=== PATIENT | female | born 1960 | race Caucasian/White ===

== ENCOUNTER 2016-06-03 20:45 | Emergency (ER) | payer OTHER ==
[~2016-06-03] VITALS: Ht 160 cm; Wt 48.0 kg
[2016-06-03] MEDS ORDERED: HYDROCODONE/ACETAMINOPHEN 5/325MG TABLET PO ONE (23:45)
[2016-06-03] MEDS ORDERED: CARISOPRODOL 350 MG TABLET PO ONE (23:45)
[2016-06-04 00:17] VITALS: BP 126/75
== END 2016-06-04 00:31 | disposition home or self-care (01) ==
LOC: ER 23:31 → EDUNIT# 23:31 → ER 06-04 00:31
DX: G89.29 Other chronic pain (principal); M54.5 Low back pain; G40.909 Epilepsy, unspecified, not intractable, without status epilepticus; F17.210 Nicotine dependence, cigarettes, uncomplicated; Z88.8 Allergy status to other drugs, medicaments and biological substances
CPT/HCPCS: 99283

== ENCOUNTER 2016-08-27 18:15 | Emergency (ER) | payer OTHER ==
[~2016-08-27] VITALS: Ht 162.6 cm; Wt 65.0 kg
[2016-08-27 21:51] LABS: BASOPHILS % 0.4 % (0.0-2.0); EOSINOPHILS % 0.7 % (0.0-5.0); HEMATOCRIT. 34.3 % (36.0-48.0); HEMOGLOBIN. 11.2 g/dL (12.0-16.0); LYMPHOCYTES % 56.2 % (20.0-50.0); MEAN CORPUSCULAR HEMOGLOBIN 28.4 pg (28.0-32.0); MEAN CORPUSCULAR VOLUME 86.8 fL (81.0-99.0); MEAN PLATELET VOLUME 7.5 fl (7.4-10.4); NEUTROPHILS % 37.7 % (40.0-76.0); PLATELET 161 x1000/uL (130-400); RED BLOOD CELL COUNT 3.96 mill/uL (4.2-5.4); RED CELL DISTRIBUTION WIDTH 21.2 % (11.6-14.6)
[2016-08-27 21:56] LABS: CHLORIDE 106 mEq/L (98-107)
[2016-08-27 21:58] LABS: INR 0.9; PROTHROMBIN TIME 9.6 sec
[2016-08-27 22:02] LABS: AMMONIA 30 uMol/L (<32); CARBON DIOXIDE 21 mEq/L (21-32)
[2016-08-27 22:04] LABS: PHENYTOIN 0.5 ug/mL (10-20)
[2016-08-27 22:09] LABS: CARBAMAZEPINE < 0.5 ug/mL (4-12); PHENOBARBITAL < 2.1 ug/mL (15.0-40.0); VALPROIC ACID < 3.0 ug/mL (50-100)
[2016-08-27 22:47] LABS: CLARITY URINE TURBID (CLEAR); COLOR URINE YELLOW (YELLOW); GLUCOSE URINE NEGATIVE (NEGATIVE); KETONES URINE NEGATIVE (NEGATIVE); LEUKOCYTE ESTERASE URINE 3+ (NEGATIVE); NITRITE URINE POSITIVE (NEGATIVE); OCCULT BLOOD URINE 2+ (NEGATIVE); PH URINE 6.5 (4.5-8.0); PROTEIN URINE 1+ (NEGATIVE); SPECIFIC GRAVITY URINE 1.005 (1.005-1.030); UROBILINOGEN URINE 0.2 E.U./dL (0.2-1.0)
[2016-08-28] MEDS ORDERED: KETOROLAC 30MG/ML VIAL IV ONE
[2016-08-28 01:30] VITALS: BP 107/62
== END 2016-08-28 01:30 | disposition home or self-care (01) ==
LOC: ER 18:25
DX: G40.909 Epilepsy, unspecified, not intractable, without status epilepticus (principal); R51 Headache; M54.2 Cervicalgia; N39.0 Urinary tract infection, site not specified; I10 Essential (primary) hypertension; F10.21 Alcohol dependence, in remission; Z98.890 Other specified postprocedural states; Z99.3 Dependence on wheelchair; Z20.6 Contact with and (suspected) exposure to human immunodeficiency virus [HIV]; W05.0XXA Fall from non-moving wheelchair, initial encounter; Y93.89 Activity, other specified; Y92.018 Other place in single-family (private) house as the place of occurrence of the external cause
CPT/HCPCS: 36415; 51701; 70450; 71010; 72125; 80053; 80156; 80165; 80184; 80185; 81001; 82140; 82962; 83605; 85025; 85610; 96374; 99285; J1885; Z7610; A4315

== ENCOUNTER 2017-03-06 14:11 | Emergency (ER) | payer OTHER ==
[~2017-03-06] VITALS: Ht 157.5 cm; Wt 60.0 kg
[2017-03-06] MEDS ORDERED: SODIUM CHLORIDE 0.9% 1,000 ML IV ONE (23:07)
[2017-03-06] MEDS ORDERED: KETOROLAC 30MG/ML VIAL IV ONE (23:15)
[2017-03-06 23:37] LABS: CLARITY URINE CLEAR (CLEAR); COLOR URINE YELLOW (YELLOW); KETONES URINE NEGATIVE (NEGATIVE); LEUKOCYTE ESTERASE URINE NEGATIVE (NEGATIVE); NITRITE URINE NEGATIVE (NEGATIVE); OCCULT BLOOD URINE NEGATIVE (NEGATIVE); PH URINE 5.5 (4.5-8.0); PROTEIN URINE NEGATIVE (NEGATIVE); SPECIFIC GRAVITY URINE 1.014 (1.005-1.030); UROBILINOGEN URINE 0.2 E.U./dL (0.2-1.0)
[2017-03-06 23:56] LABS: BASOPHILS % 0.5 % (0.0-2.0); HEMATOCRIT. 41.1 % (36.0-48.0); HEMOGLOBIN. 13.7 g/dL (12.0-16.0); LYMPHOCYTES % 50.6 % (20.0-50.0); MEAN CORPUSCULAR HEMOGLOBIN 30.5 pg (28.0-32.0); MEAN CORPUSCULAR VOLUME 91.5 fL (81.0-99.0); MEAN PLATELET VOLUME 7.1 fl (7.4-10.4); MONOCYTES % 6.9 % (2.0-8.0); PLATELET 233 x1000/uL (130-400); RED BLOOD CELL COUNT 4.49 mill/uL (4.2-5.4)
[2017-03-06 23:58] LABS: *AMPHETAMINES SCREEN URINE NEGATIVE (NEGATIVE); *BARBITURATES SCREEN URINE NEGATIVE (NEGATIVE); *BENZODIAZEPINES SCREEN URINE PRESUMTIVE POSITIVE (NEGATIVE); *COCAINE SCREEN URINE NEGATIVE (NEGATIVE); CANNABINOID URINE SCREEN PRESUMTIVE POSITIVE (NEGATIVE); METHADONE URINE SCREEN NEGATIVE (NEGATIVE); OPIATES URINE SCREEN NEGATIVE (NEGATIVE); PHENCYCLIDINE URINE SCREEN NEGATIVE (NEGATIVE)
[2017-03-07 00:14] LABS: CARBON DIOXIDE 23 mEq/L (21-32); CHLORIDE 106 mEq/L (98-107); ETHANOL BLOOD 71 mg/dL; TROPONIN I 0.03 ng/mL (0.00-0.04)
[2017-03-07 02:45] VITALS: BP 141/76
== END 2017-03-07 02:59 | disposition home or self-care (01) ==
LOC: ER 14:27
DX: K52.9 Noninfective gastroenteritis and colitis, unspecified (principal); F12.90 Cannabis use, unspecified, uncomplicated; M94.0 Chondrocostal junction syndrome [Tietze]; F17.200 Nicotine dependence, unspecified, uncomplicated
CPT/HCPCS: 36415; 71010; 80053; 80305; 81003; 81025; 83690; 84484; 85025; 93005; 96361; 96374; 99285; C1893; G0482; J1885; J7030; Z7610

== ENCOUNTER 2017-03-07 04:58 | Emergency (ER) | payer OTHER ==
[~2017-03-07] VITALS: Ht 165.1 cm; Wt 61.0 kg
[2017-03-07 05:09] VITALS: BP 150/70
== END 2017-03-07 11:02 | disposition left against medical advice (07) ==
LOC: ER 05:52
DX: R07.9 Chest pain, unspecified (principal); Z53.21 Procedure and treatment not carried out due to patient leaving prior to being seen by health care provider
CPT/HCPCS: 93005

== ENCOUNTER 2017-05-29 11:29 | Emergency (ER) | payer OTHER ==
[~2017-05-29] VITALS: Ht 165.1 cm; Wt 51.0 kg
[2017-05-29 13:14] VITALS: BP 112/72
[2017-06-05] MEDS ORDERED: ASPI-1159 PO (09:12)
[2017-06-05] MEDS ORDERED: DILT30TA3 PO (09:12)
[2017-06-05] MEDS ORDERED: RISP0.5T19 PO (09:12)
[2017-06-05] MEDS ORDERED: FOLI-43 PO (09:12)
[2017-06-05] MEDS ORDERED: DOCU-150 PO (09:12)
[2017-06-05] MEDS ORDERED: LEVE500T19 PO (09:12)
[2017-06-05] MEDS ORDERED: CARV3.1242 PO (09:12)
[2017-06-05] MEDS ORDERED: DIPH25CA46 PO (09:12)
== END 2017-05-29 13:15 | disposition left against medical advice (07) ==
LOC: ER 12:46
DX: M54.5 Low back pain (principal); Z88.8 Allergy status to other drugs, medicaments and biological substances; Z98.890 Other specified postprocedural states; Z59.0 Homelessness
CPT/HCPCS: 99283

== ENCOUNTER 2017-06-06 21:09 | Emergency (ER) | payer OTHER ==
[~2017-06-06] VITALS: Ht 162.6 cm; Wt 68.0 kg
[~2017-06-06 21:09] MED LIST: ASPI-1159 PO; CARV3.1242 PO; DILT30TA3 PO; DIPH25CA46 PO; DOCU-150 PO; FOLI-43 PO; LEVE500T19 PO; RISP0.5T19 PO
[2017-06-06] MEDS ORDERED: LEVETIRACETAM 500MG TABLET PO ONE (22:30)
[2017-06-06 23:53] LABS: BASOPHILS % 0.7 % (0.0-2.0); EOSINOPHILS % 3.3 % (0.0-5.0); HEMATOCRIT. 37.7 % (36.0-48.0); HEMOGLOBIN. 12.9 g/dL (12.0-16.0); LYMPHOCYTES % 33.8 % (20.0-50.0); MEAN CORPUSCULAR HEMOGLOBIN 32.9 pg (28.0-32.0); MEAN CORPUSCULAR VOLUME 95.9 fL (81.0-99.0); MEAN PLATELET VOLUME 7.9 fl (7.4-10.4); MONOCYTES % 8.3 % (2.0-8.0); NEUTROPHILS % 53.9 % (40.0-76.0); PLATELET 220 x1000/uL (130-400); RED BLOOD CELL COUNT 3.93 mill/uL (4.2-5.4); RED CELL DISTRIBUTION WIDTH 13.2 % (11.6-14.6)
[2017-06-06 23:59] LABS: PROTHROMBIN TIME 10.7 sec (9.4-11.6)
[2017-06-07 00:03] LABS: CHLORIDE 97 mEq/L (98-107); ETHANOL BLOOD 17 mg/dL
[2017-06-07 00:37] LABS: *COCAINE SCREEN URINE NEGATIVE (NEGATIVE); CANNABINOID URINE SCREEN NEGATIVE (NEGATIVE); METHADONE URINE SCREEN NEGATIVE (NEGATIVE); PHENCYCLIDINE URINE SCREEN NEGATIVE (NEGATIVE)
[2017-06-07 00:42] LABS: *AMPHETAMINES SCREEN URINE NEGATIVE (NEGATIVE); *BARBITURATES SCREEN URINE NEGATIVE (NEGATIVE); *BENZODIAZEPINES SCREEN URINE NEGATIVE (NEGATIVE); OPIATES URINE SCREEN PRESUMTIVE POSITIVE (NEGATIVE)
[2017-06-07 06:35] VITALS: BP 144/59
== END 2017-06-07 06:36 | disposition home or self-care (01) ==
LOC: ER 21:25
DX: R07.2 Precordial pain (principal); F10.20 Alcohol dependence, uncomplicated; R56.9 Unspecified convulsions; Z79.82 Long term (current) use of aspirin
CPT/HCPCS: 36415; 70450; 71045; 80053; 80305; 84484; 85025; 85610; 93005; 99285; G0482; Z7610

== ENCOUNTER 2017-06-27 12:01 | Emergency (ER) | payer OTHER ==
[~2017-06-27] VITALS: Ht 160 cm; Wt 55.0 kg
[2017-06-27] MEDS ORDERED: SODIUM CHLORIDE 0.9% 1,000 ML IV ONE (13:00)
[2017-06-27 14:35] LABS: BASOPHILS % 0.6 % (0.0-2.0); EOSINOPHILS % 4.5 % (0.0-5.0); HEMATOCRIT. 36.6 % (36.0-48.0); HEMOGLOBIN. 12.7 g/dL (12.0-16.0); LYMPHOCYTES % 39.5 % (20.0-50.0); MEAN CORPUSCULAR HEMOGLOBIN 33.5 pg (28.0-32.0); MEAN CORPUSCULAR VOLUME 96.4 fL (81.0-99.0); MEAN PLATELET VOLUME 7.3 fl (7.4-10.4); MONOCYTES % 7.3 % (2.0-8.0); NEUTROPHILS % 48.1 % (40.0-76.0); PLATELET 157 x1000/uL (130-400); RED CELL DISTRIBUTION WIDTH 15.2 % (11.6-14.6)
[2017-06-27 14:39] LABS: CHLORIDE 104 mEq/L (98-107)
[2017-06-27 14:40] LABS: PROTHROMBIN TIME 10.4 sec (9.4-11.6)
[2017-06-27 14:43] LABS: ETHANOL BLOOD 218 mg/dL
[2017-06-27 14:55] VITALS: BP 110/70
[2017-06-27 15:27] LABS: CLARITY URINE CLEAR (CLEAR); COLOR URINE YELLOW (YELLOW); KETONES URINE NEGATIVE (NEGATIVE); LEUKOCYTE ESTERASE URINE NEGATIVE (NEGATIVE); NITRITE URINE NEGATIVE (NEGATIVE); OCCULT BLOOD URINE NEGATIVE (NEGATIVE); PROTEIN URINE NEGATIVE (NEGATIVE); SPECIFIC GRAVITY URINE 1.007 (1.005-1.030); UROBILINOGEN URINE 0.2 E.U./dL (0.2-1.0)
[2017-06-27] MEDS ORDERED: SODIUM CHLORIDE 0.9% 1000ML BAG (SEPSIS BOLUS) IV NR (15:30)
[2017-06-27] MEDS ORDERED: DIPHENHYDRAMINE 50MG/ML VIAL IV NR (16:06)
== END 2017-06-27 17:53 | disposition home or self-care (01) ==
LOC: ER 12:30
DX: K62.5 Hemorrhage of anus and rectum (principal); E87.6 Hypokalemia; E86.0 Dehydration; F10.229 Alcohol dependence with intoxication, unspecified; F17.200 Nicotine dependence, unspecified, uncomplicated; F12.10 Cannabis abuse, uncomplicated; I48.91 Unspecified atrial fibrillation; R56.9 Unspecified convulsions; Z79.82 Long term (current) use of aspirin; Z86.010 Personal history of colon polyps; Z90.49 Acquired absence of other specified parts of digestive tract; Z87.440 Personal history of urinary (tract) infections; Z98.890 Other specified postprocedural states
CPT/HCPCS: 36415; 71045; 74176; 80053; 81003; 83605; 83690; 84484; 85025; 85610; 86850; 86900; 86901; 93005; 96361; 96374; 96375; 99285; G0482; J7030; Z7610

== ENCOUNTER 2017-09-05 17:03 | Emergency (ER) | payer OTHER ==
[~2017-09-05] VITALS: Ht 160 cm; Wt 60.0 kg
[~2017-09-05 17:03] MED LIST changes: +CARI350T PO; +HYDR-4001 PO
[2017-09-05] MEDS ORDERED: SODIUM CHLORIDE 0.9% 1,000 ML IV ONE (23:23)
[2017-09-05] MEDS ORDERED: IBUPROFEN 600MG TABLET PO ONE (23:45)
[2017-09-06 00:21] LABS: BASOPHILS % 1.1 % (0.0-2.0); HEMATOCRIT. 38.9 % (36.0-48.0); HEMOGLOBIN. 13.1 g/dL (12.0-16.0); MEAN CORPUSCULAR HEMOGLOBIN 32.6 pg (28.0-32.0); MEAN CORPUSCULAR VOLUME 96.8 fL (81.0-99.0); MEAN PLATELET VOLUME 8.1 fl (7.4-10.4); MONOCYTES % 8.6 % (2.0-8.0); NEUTROPHILS % 51.3 % (40.0-76.0); PLATELET 349 x1000/uL (130-400); RED BLOOD CELL COUNT 4.02 mill/uL (4.2-5.4); RED CELL DISTRIBUTION WIDTH 14.5 % (11.6-14.6)
[2017-09-06 00:26] LABS: CHLORIDE 104 mEq/L (98-107)
[2017-09-06 00:31] LABS: ETHANOL BLOOD 42 mg/dL
[2017-09-06 01:30] VITALS: BP 144/88
== END 2017-09-06 06:35 | disposition home or self-care (01) ==
LOC: ER 17:30
DX: M79.662 Pain in left lower leg (principal); M79.661 Pain in right lower leg; I10 Essential (primary) hypertension; R56.9 Unspecified convulsions; F10.10 Alcohol abuse, uncomplicated; Y90.2 Blood alcohol level of 40-59 mg/100 ml; F17.200 Nicotine dependence, unspecified, uncomplicated; Z79.82 Long term (current) use of aspirin
CPT/HCPCS: 36415; 80048; 80307; 80329; 85025; 93970; 99285; G0482; J7030

== ENCOUNTER 2017-09-12 14:54 | Emergency (ER) | payer OTHER ==
[~2017-09-12] VITALS: Ht 162.6 cm; Wt 53.0 kg
[~2017-09-12 14:54] MED LIST changes: -CARI350T PO; +S350 PO
[2017-09-12] MEDS ORDERED: LEVETIRACETAM 500MG PREMIX 100 ML IV ONE (16:15)
[2017-09-12] MEDS ORDERED: SODIUM CHLORIDE 0.9% 1,000 ML IV ONE (16:15)
[2017-09-12 16:19] LABS: EOSINOPHILS % 3.1 % (0.0-5.0); HEMATOCRIT. 38.5 % (36.0-48.0); HEMOGLOBIN. 13.3 g/dL (12.0-16.0); LYMPHOCYTES % 34.1 % (20.0-50.0); MEAN CORPUSCULAR HEMOGLOBIN 33.1 pg (28.0-32.0); MEAN CORPUSCULAR VOLUME 96.2 fL (81.0-99.0); MEAN PLATELET VOLUME 7.3 fl (7.4-10.4); MONOCYTES % 6.6 % (2.0-8.0); NEUTROPHILS % 55.2 % (40.0-76.0); PLATELET 313 x1000/uL (130-400); RED BLOOD CELL COUNT 4.01 mill/uL (4.2-5.4); RED CELL DISTRIBUTION WIDTH 14.6 % (11.6-14.6)
[2017-09-12 16:25] LABS: CHLORIDE 103 mEq/L (98-107)
[2017-09-12 17:00] LABS: ETHANOL BLOOD 307 mg/dL
[2017-09-12 18:04] VITALS: BP 124/69
[2017-09-12] MEDS ORDERED: ACETAMINOPHEN 325MG TABLET PO ONE (20:30)
== END 2017-09-12 21:25 | disposition home or self-care (01) ==
LOC: ER 14:54
DX: F10.20 Alcohol dependence, uncomplicated (principal); F17.200 Nicotine dependence, unspecified, uncomplicated; R56.9 Unspecified convulsions; Y90.8 Blood alcohol level of 240 mg/100 ml or more; Z79.899 Other long term (current) drug therapy
CPT/HCPCS: 36415; 80053; 85025; 96365; 99284; G0482; J1953; J7030; Z7610

== ENCOUNTER 2017-09-12 22:32 | Emergency (ER) | payer OTHER ==
[~2017-09-12] VITALS: Ht 160 cm; Wt 60.0 kg
[2017-09-12 22:43] VITALS: BP 117/72
== END 2017-09-13 06:25 | disposition home or self-care (01) ==
LOC: ER 22:33
DX: R56.9 Unspecified convulsions (principal); F10.10 Alcohol abuse, uncomplicated; F12.10 Cannabis abuse, uncomplicated; F17.200 Nicotine dependence, unspecified, uncomplicated; Z91.14 Patient's other noncompliance with medication regimen; Z90.49 Acquired absence of other specified parts of digestive tract; Z98.890 Other specified postprocedural states; Z86.73 Personal history of transient ischemic attack (TIA), and cerebral infarction without residual deficits; Z79.899 Other long term (current) drug therapy; Y90.9 Presence of alcohol in blood, level not specified
CPT/HCPCS: 36415; 82947; 82962; 99283

== ENCOUNTER 2017-09-19 12:57 | Emergency (ER) | payer OTHER ==
[~2017-09-19] VITALS: Ht 165.1 cm; Wt 65.0 kg
[~2017-09-19 12:57] MED LIST changes: +CARI350T PO; -S350 PO
[2017-09-19 15:20] LABS: BASOPHILS % 0.5 % (0.0-2.0); EOSINOPHILS % 1.8 % (0.0-5.0); HEMATOCRIT. 38.7 % (36.0-48.0); LYMPHOCYTES % 31.3 % (20.0-50.0); MEAN CORPUSCULAR HEMOGLOBIN 32.4 pg (28.0-32.0); MEAN CORPUSCULAR VOLUME 96.8 fL (81.0-99.0); MEAN PLATELET VOLUME 7.6 fl (7.4-10.4); MONOCYTES % 4.8 % (2.0-8.0); NEUTROPHILS % 61.6 % (40.0-76.0); PLATELET 171 x1000/uL (130-400); RED CELL DISTRIBUTION WIDTH 14.8 % (11.6-14.6)
[2017-09-19 15:23] LABS: CHLORIDE 104 mEq/L (98-107)
[2017-09-19 15:28] LABS: HCG SCREEN NEGATIVE; PROTHROMBIN TIME 10.4 sec (9.4-11.6)
[2017-09-19 15:44] LABS: ETHANOL BLOOD 321 mg/dL
[2017-09-19 18:07] LABS: CLARITY URINE CLOUDY (CLEAR); COLOR URINE YELLOW (YELLOW); KETONES URINE NEGATIVE (NEGATIVE); LEUKOCYTE ESTERASE URINE 3+ (NEGATIVE); NITRITE URINE NEGATIVE (NEGATIVE); OCCULT BLOOD URINE TRACE (NEGATIVE); PROTEIN URINE NEGATIVE (NEGATIVE); SPECIFIC GRAVITY URINE 1.005 (1.005-1.030); UROBILINOGEN URINE 0.2 E.U./dL (0.2-1.0)
[2017-09-19 18:16] LABS: *COCAINE SCREEN URINE NEGATIVE (NEGATIVE)
[2017-09-19 18:17] LABS: *AMPHETAMINES SCREEN URINE NEGATIVE (NEGATIVE); *BARBITURATES SCREEN URINE NEGATIVE (NEGATIVE); *BENZODIAZEPINES SCREEN URINE NEGATIVE (NEGATIVE); CANNABINOID URINE SCREEN PRESUMTIVE POSITIVE (NEGATIVE); METHADONE URINE SCREEN NEGATIVE (NEGATIVE); OPIATES URINE SCREEN NEGATIVE (NEGATIVE)
[2017-09-19 18:18] LABS: PHENCYCLIDINE URINE SCREEN NEGATIVE (NEGATIVE)
[2017-09-19] MEDS ORDERED: ACETAMINOPHEN 325MG TABLET PO ONE (18:30)
[2017-09-19] MEDS ORDERED: CEFTRIAXONE 1 G PREMIX 50 ML IV ONE (19:45)
[2017-09-19] MEDS ORDERED: CEFTRIAXONE SODIUM 1 G/VIAL IM ONE (20:45)
[2017-09-19] MEDS ORDERED: LIDOCAINE HCL 1% 20ML VIAL (Pyxis) INJ INFIL ONE (20:45)
[2017-09-19 23:03] VITALS: BP 112/69
== END 2017-09-20 00:20 | disposition home or self-care (01) ==
LOC: ER 13:36
DX: F10.129 Alcohol abuse with intoxication, unspecified (principal); Y90.8 Blood alcohol level of 240 mg/100 ml or more; R56.9 Unspecified convulsions; N39.0 Urinary tract infection, site not specified; F17.200 Nicotine dependence, unspecified, uncomplicated; W05.0XXA Fall from non-moving wheelchair, initial encounter; Y93.9 Activity, unspecified; Y92.9 Unspecified place or not applicable
CPT/HCPCS: 36415; 70450; 71045; 72125; 80053; 80305; 81003; 84484; 84703; 85025; 85610; 87077; 87086; 87186; 93005; 96372; 99285; G0482; J0696; J3490; Z7610

== ENCOUNTER → 2017-09-20 | Emergency (ER) | payer OTHER ==
[~2017-09-20] VITALS: Ht 170.2 cm; Wt 55.0 kg
[~2017-09-20] MED LIST changes: +LEVETIRACETAM 500MG TABLET PO ONE
[2017-09-20 23:00] VITALS: BP 104/62
== END | disposition home or self-care (01) ==
LOC: ER 15:44
DX: F10.229 Alcohol dependence with intoxication, unspecified (principal); G40.909 Epilepsy, unspecified, not intractable, without status epilepticus; G89.29 Other chronic pain; M54.89 Other dorsalgia; F12.10 Cannabis abuse, uncomplicated; F17.200 Nicotine dependence, unspecified, uncomplicated; Y90.8 Blood alcohol level of 240 mg/100 ml or more; Z91.81 History of falling; Z91.14 Patient's other noncompliance with medication regimen; Z98.890 Other specified postprocedural states; Z99.3 Dependence on wheelchair; Z89.431 Acquired absence of right foot
CPT/HCPCS: 36415; 99283; G0482

== ENCOUNTER 2017-09-30 11:19 | Emergency (ER) | payer OTHER ==
[~2017-09-30] VITALS: Ht 152.4 cm; Wt 50.0 kg
[~2017-09-30 11:19] MED LIST changes: -CARI350T PO; -LEVETIRACETAM 500MG TABLET PO ONE; +S350 PO
[2017-09-30] MEDS ORDERED: ACETAMINOPHEN 325MG TABLET PO ONE ×2 (13:00→19:00)
[2017-09-30] MEDS ORDERED: SODIUM CHLORIDE 0.9% 1,000 ML IV ONE (15:21)
[2017-09-30 21:46] VITALS: BP 136/66
== END 2017-09-30 22:08 | disposition home or self-care (01) ==
LOC: ER 11:19
DX: M54.5 Low back pain (principal); F10.20 Alcohol dependence, uncomplicated; I10 Essential (primary) hypertension; R93.0 Abnormal findings on diagnostic imaging of skull and head, not elsewhere classified; R55 Syncope and collapse; Z79.82 Long term (current) use of aspirin; Y90.8 Blood alcohol level of 240 mg/100 ml or more; W07.XXXA Fall from chair, initial encounter; Y93.89 Activity, other specified; Y92.89 Other specified places as the place of occurrence of the external cause; Y99.8 Other external cause status
CPT/HCPCS: 36415; 70450; 72100; 72125; 96360; 96361; 99285; G0482; J7030; Z7610; C1893

== ENCOUNTER 2017-09-30 21:26 | Observation (INO) | payer OTHER ==
[~2017-09-30] VITALS: Ht 160 cm; Wt 49.9 kg
[2017-10-01 08:37] LABS: BASOPHILS % 0.8 % (0.0-2.0); EOSINOPHILS % 0.3 % (0.0-5.0); HEMATOCRIT. 36.6 % (36.0-48.0); HEMOGLOBIN. 12.5 g/dL (12.0-16.0); MEAN CORPUSCULAR HEMOGLOBIN 32.5 pg (28.0-32.0); MEAN CORPUSCULAR VOLUME 95.5 fL (81.0-99.0); MEAN PLATELET VOLUME 7.3 fl (7.4-10.4); MONOCYTES % 8.7 % (2.0-8.0); NEUTROPHILS % 74.2 % (40.0-76.0); PLATELET 128 x1000/uL (130-400); RED BLOOD CELL COUNT 3.83 mill/uL (4.2-5.4)
[2017-10-01 08:43] LABS: CHLORIDE 102 mEq/L (98-107)
[2017-10-01 08:47] LABS: ETHANOL BLOOD < 10 mg/dL
[2017-10-01 08:49] LABS: AMMONIA 22 uMol/L (<32)
[2017-10-01] MEDS ORDERED: LEVETIRACETAM 1000MG/100ML 100 ML IV ONE (09:15)
[2017-10-01] MEDS ORDERED: LIDOCAINE HCL/EPINEPHRINE 1%-EPI 1:100,000 30 ML VIAL INFIL ONE (10:30)
[2017-10-01 10:42] LABS: CLARITY URINE CLOUDY (CLEAR); COLOR URINE YELLOW (YELLOW); KETONES URINE TRACE (NEGATIVE); LEUKOCYTE ESTERASE URINE 3+ (NEGATIVE); NITRITE URINE NEGATIVE (NEGATIVE); OCCULT BLOOD URINE 1+ (NEGATIVE); PH URINE 7.5 (4.5-8.0); PROTEIN URINE TRACE (NEGATIVE); SPECIFIC GRAVITY URINE 1.008 (1.005-1.030); UROBILINOGEN URINE 0.2 E.U./dL (0.2-1.0)
[2017-10-01] MEDS ORDERED: CEFTRIAXONE 1 G PREMIX 50 ML IV NR (11:15)
[2017-10-01 11:31] LABS: *AMPHETAMINES SCREEN URINE NEGATIVE (NEGATIVE); *BARBITURATES SCREEN URINE NEGATIVE (NEGATIVE); *BENZODIAZEPINES SCREEN URINE NEGATIVE (NEGATIVE); *COCAINE SCREEN URINE NEGATIVE (NEGATIVE); METHADONE URINE SCREEN NEGATIVE (NEGATIVE); OPIATES URINE SCREEN NEGATIVE (NEGATIVE)
[2017-10-01 11:32] LABS: CANNABINOID URINE SCREEN PRESUMTIVE POSITIVE (NEGATIVE); PHENCYCLIDINE URINE SCREEN NEGATIVE (NEGATIVE)
[2017-10-01] MEDS ORDERED: LIDOCAINE HCL/EPINEPHRINE 1%-EPI 1:100,000 20 ML VIAL INFIL ONE (12:30)
[2017-10-01] MEDS ORDERED: BACITRACIN ZINC OINT UDPKT TOP ONE (13:45)
[2017-10-01 14:58] VITALS: BP 143/73
[2017-10-01 16:00] VITALS: BP 145/80
[2017-10-01] MEDS ORDERED: LORAZEPAM 2MG/ML CPJ IV PRN ×2 (16:30→17:45)
[2017-10-01] MEDS ORDERED: DIPHENHYDRAMINE 50MG/ML VIAL IM PRN (16:30)
[2017-10-01] MEDS: DOCUSATE SODIUM 100MG CAPSULE PO SCH (17:00)
[2017-10-01] MEDS: CARISOPRODOL 350 MG TABLET PO PRN ×2 (17:03→20:25)
[2017-10-01] MEDS: HYDROCODONE/ACETAMINOPHEN 5/325MG TABLET PO PRN (17:07)
[2017-10-01] MEDS ORDERED: CLONIDINE 0.1MG TABLET PO PRN (17:45)
[2017-10-01] MEDS ORDERED: ONDANSETRON HCL 4MG/2ML VIAL IV PRN (17:45)
[2017-10-01] MEDS ORDERED: ACETAMINOPHEN 325MG TABLET PO PRN (17:45)
[2017-10-01] MEDS: SODIUM CHLORIDE 0.9% 1,000 ML IV SCH (18:00)
[2017-10-01 20:00] VITALS: BP 104/66
[2017-10-01] MEDS ORDERED: LEVOFLOXACIN 500MG PREMIX 100 ML IV SCH (20:00)
[2017-10-01] MEDS: CARVEDILOL 3.125 MG TABLET PO SCH (20:28)
[2017-10-01] MEDS: RISPERIDONE 0.5MG TABLET PO SCH (20:29)
[2017-10-01] MEDS: ENOXAPARIN 40MG/0.4ML SYR SUBCUT SCH (20:29)
[2017-10-01] MEDS ORDERED: LEVETIRACETAM 250MG TABLET PO SCH ×2 (21:00)
[2017-10-01] MEDS ORDERED: ENOXAPARIN 40MG/0.4ML SYR SUBCUT SCH (21:00)
[2017-10-01 22:00] VITALS: BP 104/66
[2017-10-02] VITALS (7 sets, daily range): BP systolic 94–148; BP diastolic 54–73
[2017-10-02] MEDS: DILTIAZEM HCL 30MG TABLET PO SCH ×3 (00:45→13:17)
[2017-10-02] MEDS: HYDROCODONE/ACETAMINOPHEN 5/325MG TABLET PO PRN ×3 (00:47→15:05)
[2017-10-02] MEDS: LEVETIRACETAM 500MG TABLET PO SCH ×2 (08:41→21:01)
[2017-10-02] MEDS: DOCUSATE SODIUM 100MG CAPSULE PO SCH ×2 (08:41→18:03)
[2017-10-02] MEDS: CARVEDILOL 3.125 MG TABLET PO SCH ×2 (08:44→21:01)
[2017-10-02] MEDS ORDERED: ASPIRIN 81MG TABLET PO SCH (09:00)
[2017-10-02] MEDS ORDERED: FOLIC ACID 1MG TABLET PO SCH (09:00)
[2017-10-02] MEDS: SODIUM CHLORIDE 0.9% 1,000 ML IV SCH ×2 (09:00→14:00)
[2017-10-02] MEDS: POTASSIUM CHLORIDE 20MEQ/PACKET PO SCH (09:57)
[2017-10-02] MEDS: RISPERIDONE 0.5MG TABLET PO SCH (21:01)
[2017-10-02] MEDS: ENOXAPARIN 40MG/0.4ML SYR SUBCUT SCH (21:02)
== END 2017-10-02 21:05 | disposition home or self-care (01) ==
LOC: ER 21:26 → INTOOBSV 10-01 11:44 → 7WST 10-01 11:44 → EDBEDREQTM 10-01 11:49 → EDBEDREQ 10-01 11:49 → ENRESERV 10-01 11:53
PROVIDERS: ADMIT Internal Medicine Nephrology; ATTEND Internal Medicine Nephrology
DX: G40.909 Epilepsy, unspecified, not intractable, without status epilepticus (principal); N39.0 Urinary tract infection, site not specified; E87.6 Hypokalemia; I48.91 Unspecified atrial fibrillation; I11.0 Hypertensive heart disease with heart failure; I50.9 Heart failure, unspecified; Z91.14 Patient's other noncompliance with medication regimen
CPT/HCPCS: 36415; 51702; 70450; 71045; 72125; 80053; 80305; 81003; 82140; 85025; 87077; 87086; 87186; 93005; 96361; 96365; 96366; 96367; 96372; 99285; G0378; G0482; J0696; J1650; J1953; J1956; J3490; J7030; J7040; L0172

== ENCOUNTER 2017-10-17 14:04 | Emergency (ER) | payer OTHER ==
[~2017-10-17] VITALS: Ht 160 cm; Wt 46.0 kg
[2017-10-17] MEDS ORDERED: SODIUM CHLORIDE 0.9% 500 ML IV ONE (15:41)
[2017-10-17 17:54] LABS: BASOPHILS % 0.6 % (0.0-2.0); EOSINOPHILS % 0.6 % (0.0-5.0); HEMATOCRIT. 38.6 % (36.0-48.0); HEMOGLOBIN. 12.8 g/dL (12.0-16.0); LYMPHOCYTES % 37.8 % (20.0-50.0); MEAN CORPUSCULAR HEMOGLOBIN 32.4 pg (28.0-32.0); MEAN CORPUSCULAR VOLUME 97.9 fL (81.0-99.0); MEAN PLATELET VOLUME 7.9 fl (7.4-10.4); MONOCYTES % 6.1 % (2.0-8.0); NEUTROPHILS % 54.9 % (40.0-76.0); PLATELET 128 x1000/uL (130-400); RED BLOOD CELL COUNT 3.94 mill/uL (4.2-5.4); RED CELL DISTRIBUTION WIDTH 14.8 % (11.6-14.6)
[2017-10-17 18:02] LABS: CHLORIDE 102 mEq/L (98-107)
[2017-10-17] MEDS ORDERED: LEVETIRACETAM 500MG PREMIX 100 ML IV ONE (20:45)
[2017-10-17] MEDS ORDERED: KETOROLAC 30MG/ML VIAL IM ONE (22:15)
[2017-10-18] MEDS ORDERED: LEVETIRACETAM 500MG PREMIX 100 ML IV SCH (06:30)
[2017-10-18] MEDS ORDERED: LOPERAMIDE HCL 2MG CAPSULE PO ONE (06:45)
[2017-10-18] MEDS ORDERED: KETOROLAC 60MG/2ML VIAL IM ONE (10:00)
[2017-10-18 18:35] VITALS: BP 145/85
== END 2017-10-18 18:30 | disposition home or self-care (01) ==
LOC: ER 14:04
DX: R56.9 Unspecified convulsions (principal); M54.2 Cervicalgia; M79.671 Pain in right foot; M54.9 Dorsalgia, unspecified; F17.200 Nicotine dependence, unspecified, uncomplicated; Z79.82 Long term (current) use of aspirin; Z79.899 Other long term (current) drug therapy
CPT/HCPCS: 36415; 80053; 82542; 85025; 96365; 96372; 99284; C1893; J1885; J1953; J7030; Z7610

== ENCOUNTER 2018-02-25 18:23 | Emergency (ER) | payer OTHER ==
[~2018-02-25] VITALS: Ht 165.1 cm; Wt 72.0 kg
[~2018-02-25 18:23] MED LIST changes: -DILT30TA3 PO; -S350 PO
[2018-02-25] MEDS ORDERED: KETOROLAC 30MG/ML VIAL IV STA (19:36)
[2018-02-25] MEDS ORDERED: LEVETIRACETAM 500MG TABLET PO ONE (19:45)
[2018-02-25 21:36] LABS: BASOPHILS % 0.3 % (0.0-2.0); CHLORIDE 109 mEq/L (98-107); EOSINOPHILS % 0.4 % (0.0-5.0); HEMATOCRIT. 46.7 % (36.0-48.0); HEMOGLOBIN. 15.5 g/dL (12.0-16.0); LYMPHOCYTES % 36.6 % (20.0-50.0); MEAN CORPUSCULAR HEMOGLOBIN 29.3 pg (28.0-32.0); MEAN CORPUSCULAR VOLUME 88.6 fL (81.0-99.0); MONOCYTES % 4.2 % (2.0-8.0); NEUTROPHILS % 58.5 % (40.0-76.0); PLATELET 236 x1000/uL (130-400); RED BLOOD CELL COUNT 5.27 mill/uL (4.2-5.4); RED CELL DISTRIBUTION WIDTH 15.4 % (11.6-14.6)
[2018-02-25 21:44] LABS: ETHANOL BLOOD 139 mg/dL
[2018-02-25 21:53] LABS: CLARITY URINE CLOUDY (CLEAR); COLOR URINE YELLOW (YELLOW); KETONES URINE NEGATIVE (NEGATIVE); LEUKOCYTE ESTERASE URINE 3+ (NEGATIVE); NITRITE URINE NEGATIVE (NEGATIVE); OCCULT BLOOD URINE TRACE (NEGATIVE); PH URINE 5.5 (4.5-8.0); PROTEIN URINE TRACE (NEGATIVE); SPECIFIC GRAVITY URINE 1.011 (1.005-1.030); UROBILINOGEN URINE 0.2 E.U./dL (0.2-1.0)
[2018-02-25 22:33] LABS: *AMPHETAMINES SCREEN URINE NEGATIVE (NEGATIVE); *BARBITURATES SCREEN URINE NEGATIVE (NEGATIVE)
[2018-02-25 22:34] LABS: *BENZODIAZEPINES SCREEN URINE NEGATIVE (NEGATIVE); *COCAINE SCREEN URINE NEGATIVE (NEGATIVE); METHADONE URINE SCREEN NEGATIVE (NEGATIVE); OPIATES URINE SCREEN NEGATIVE (NEGATIVE)
[2018-02-25 22:35] LABS: CANNABINOID URINE SCREEN PRESUMTIVE POSITIVE (NEGATIVE); PHENCYCLIDINE URINE SCREEN NEGATIVE (NEGATIVE)
[2018-02-26 15:15] VITALS: BP 115/82
== END 2018-02-26 16:04 | disposition home or self-care (01) ==
LOC: ER 18:23
DX: N39.0 Urinary tract infection, site not specified (principal); M25.512 Pain in left shoulder; G89.29 Other chronic pain; R56.9 Unspecified convulsions; F17.200 Nicotine dependence, unspecified, uncomplicated; Z79.82 Long term (current) use of aspirin
CPT/HCPCS: 36415; 80053; 80305; 81003; 85025; 87077; 87086; 87186; 96374; 99283; G0482; J1885